=== PATIENT | female | born 1975 | race Caucasian/White ===

== ENCOUNTER 2016-12-31 12:40 | Emergency (ER) | payer MEDICAID, OTHER ==
[2016-12-31 12:45] VITALS: TEMP 98.1
[2016-12-31] MEDS ORDERED: methylPREDNISolone SOD SUCC 125 MG/2 ML VIAL IVP ONE (12:45)
[2016-12-31] MEDS ORDERED: RANITIDINE 50 MG/2 ML VIAL IVP ONE (12:45)
--- NOTE | 2016-12-31 12:53 | EDPHY ---
H & P Time Seen by Provider: 12/31/16 12:41 HPI/ROS: HPI Allergic reaction. 41-year-old female by private vehicle. This patient was diagnosed with shingles , thoracic distribution on the right side, yesterday at her primary care physician's office, [facility], she was started on naproxen which she has had in the past as well as acyclovir. About an hour and half prior to arrival she states that her fingers started feeling swollen as well as her lips and around her eyelids. She has never had a reaction to medication in the past. She tells me she thinks she is having a reaction to the acyclovir. She denies any difficulty breathing or wheezing. No sensation of swelling in her throat or difficulty swallowing. She describes having a faint flushing like red rash on her arms and legs she also describes having tingling in her hands. ROS: Constitutional: No fever, no chills. As above. Eyes: No discharge. No changes in vision. As above. ENT: No sore throat. No nasal congestion or rhinorrhea. Respiratory: No cough. No shortness of breath. Cardiac: No chest pain, no palpitations. Gastrointestinal: No abdominal pain, no vomiting, no diarrhea. Genitourinary: No hematuria. No dysuria or increased frequency with urination. Musculoskeletal: No back pain. No neck pain. No myalgias or arthralgias. Skin: As above. Neurological: No headache. No focal weakness or altered sensation. Past medical history: Shingles, tubal ligation, IUD, as above. Social history: She is here by herself. Nonsmoker. Denies alcohol. Physical Exam: General Appearance: Alert, anxious. This patient is responding to questions appropriately and in full sentences. This patient appears well-hydrated and well-nourished. No voice changes. Eyes: Pupils equal and round no pallor or injection. Mild upper and lower lid edema, erythema or injection. ENT, Mouth: Mucous membranes are moist. The pharyngeal tissues are unremarkable. No edema or swelling. No asymmetry suggestive of abscess. No erythema or exudates. No stridor on auscultation of her neck. She has mild edema of her lips. Respiratory: There are no retractions, lungs are clear to auscultation with good air movement bilaterally. Cardiovascular: Regular rate and rhythm. No murmur. Gastrointestinal: Abdomen is soft and nontender, no masses, bowel sounds normal. No focal tenderness at McBurney's point. No De La Cruz sign. Neurological: Motor sensory function is grossly intact. Cranial nerves are normal. Gait is normal. Skin: Warm and dry, diffuse erythematous flushing which is very faint and blanching on upper extremities and lower extremities. No petechiae. Zoster like rash, mid right upper abdomen. Musculoskeletal: Neck is supple and nontender. Extremities are symmetrical. All joints range without pain or impingement. Psychiatric: No agitation. No depression. Database: EKG: Imaging: Procedures: Emergency department course: Patient is likely having a reaction to acyclovir. She has had naproxen in the past and has not had any issue with it. An IV was placed. She was placed on a monitor. She was initially given 50 mg of IV Zantac, 125 mg of IV Solu-Medrol and 50 mg of IV Benadryl. 1:10 p.m., patient re-evaluated. She is doing much better. Her periorbital edema and edema involving her lips has completely disappeared. Her rash is resolved as well. She states that she feels much more relaxed and better. Lungs are clear on auscultation bilaterally. She has no difficulty swallowing or sensation of swelling in her throat. She has no complaints at this time. Plan will be to discharge her to home with prescriptions for prednisone, Benadryl and Pepcid. I discussed continuing her on an antiviral medication for her zoster. We will try valacyclovir. 1:30 p.m. patient re-evaluated. Her symptoms have resolved. She feels comfortable going home and I feel she is safe for discharge. Follow-up and return to emergency department precautions discussed. She knows how to take her medications. Her daughter is coming to pick her up now. All of her questions were answered. She was discharged in good condition. Differential Diagnosis: The differential diagnosis on this patient includes but is not limited to allergic reaction to medication, angioedema, anaphylactoid reaction. This represents a partial list of diagnoses considered. These considerations are based on history, physical exam, past history, reassessment and diagnostic testing. Smoking Status: Current every day smoker Constitutional: Initial Vital Signs Temperature (C) 36.7 C 12/31/16 12:43 Heart Rate 121 H 12/31/16 12:43 Respiratory Rate 20 12/31/16 12:43 Blood Pressure 152/87 H 12/31/16 12:43 O2 Sat (%) 95 12/31/16 12:43 O2 Delivery Mode Room Air Allergies/Adverse Reactions: No Known Allergies Allergy (Unverified 12/31/16 12:43) Home Medications: Medication Instructions Recorded Famotidine [Pepcid] 40 mg PO BID #12 tab 12/31/16 Valacyclovir HCl [Valtrex] 1,000 mg PO TID #21 tab 12/31/16 diphenhydrAMINE [Benadryl 50 MG 50 mg PO Q6-8PRN PRN #10 cap 12/31/16 (*)] predniSONE [prednisone 20mg (RX)] 60 mg PO DAILY #9 tab 12/31/16 Medical Decision Making - Data Points Medications Given: Discontinued Medications Diphenhydramine HCl (Benadryl Injection) 50 mg IVP EDNOW ONE Stop: 12/31/16 12:46 Last Admin: 12/31/16 12:53 Dose: 50 mg Methylprednisolone Sodium Succinate (Solu-Medrol) 125 mg IVP EDNOW ONE Stop: 12/31/16 12:46 Last Admin: 12/31/16 12:50 Dose: 125 mg Ranitidine HCl (Zantac) 50 mg IVP EDNOW ONE Stop: 12/31/16 12:46 Last Admin: 12/31/16 13:00 Dose: 50 mg Departure - Departure Disposition: Home, Routine, Self-Care Clinical Impression: Allergic reaction Condition: Good Instructions: General Allergic Reaction (ED) Additional Instructions: Read and follow provided instructions. Follow-up with your primary care physician tomorrow as needed for re-evaluation for re-evaluation. Take medication as prescribed only. Return to the emergency department immediately for return of facial swelling, rash, any sensation of swelling in your throat, difficulty swallowing, difficulty breathing worsening symptoms or other serious concerns. Referrals: LOLLY RIBERA,. [Primary Care Provider] - As per Instructions Prescriptions: diphenhydrAMINE [Benadryl 50 MG (*)] 50 mg PO Q6-8PRN PRN #10 cap PRN Reason: Rash Famotidine [Pepcid] 40 mg PO BID #12 tab predniSONE [prednisone 20mg (RX)] 60 mg PO DAILY #9 tab Valacyclovir HCl [Valtrex] 1,000 mg PO TID #21 tab
[2016-12-31 14:01] VITALS: BP 111/77; PULSE 76; RESP 16; O2SAT 96
== END 2016-12-31 13:40 | disposition home or self-care (01) ==
LOC: CED 12:40
DX: T78.40XA Allergy, unspecified, initial encounter (principal); F17.200 Nicotine dependence, unspecified, uncomplicated
CPT/HCPCS: 96374; J1200; J2780

== ENCOUNTER 2017-04-29 17:43 | Emergency (ER) | payer MEDICAID ==
[2017-04-29 17:53] VITALS: RESP 18; TEMP 98.1
[2017-04-29] MEDS ORDERED: methylPREDNISolone SOD SUCC 125 MG/2 ML VIAL IVP ONE (18:00)
[2017-04-29] MEDS ORDERED: FAMOTIDINE 20 MG/2 ML SDV IVP ONE (18:00)
--- NOTE | 2017-04-29 19:09 | EDPHY ---
H & P Time Seen by Provider: 04/29/17 17:51 HPI/ROS: This patient took 1 naproxen this afternoon went to a wine tasting having sips of red wine when she developed a feeling of throat swelling, a red rash to her arms and chest and intense itching to the palm of her hands. She became anxious due to the symptoms and developed some diaphoresis as well. She came here by private vehicle for further evaluation with the impression that she is having allergic reaction. Patient reports she had similar symptoms when seen here in December of this year treated for an allergic reaction that was deemed secondary to Valtrex. However, without reaction she had some angioedema as well. No angioedema of her face noted today. ROS: Constitutional: No fevers. No fatigue. No otherwise negative HEENT: No dysphonia. No facial swelling. Pulmonary: No wheeze or shortness of breath. Cardiovascular: No heart palpitations or lightheadedness GI: No nausea or vomiting Neuro: No numbness or tingling. No other complaints 10 point ROS is otherwise negative Past Medical/Surgical History: Previous allergic reaction-systemic from Valtrex. 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 Allergic beer Smoking Status: Current every day smoker Physical Exam: General Appearance: Alert, no distress. Eyes: Pupils equal and round no pallor or injection. ENT, Mouth: Mucous membranes moist. No angioedema. No drooling or stridor. No dysphonia. Respiratory: Clear to auscultation bilaterally no wheezing. There are no retractions. Cardiovascular: Regular rate and rhythm. Gastrointestinal: Abdomen is soft and nontender, no masses, bowel sounds normal. Neurological: GCS 15. Skin: Patient has a fine erythematous rash to her arms, trunk and chest. No petechia or purpura. Musculoskeletal: Neck is supple nontender. Extremities are symmetrical, full range of motion. Psychiatric: Mood and affect normal except for mild anxiety initially. DIFFERENTIAL DIAGNOSIS: After history and physical exam differential diagnosis was considered for allergic reaction, disulfiram reaction or tyramine flushing response Constitutional: Initial Vital Signs Temperature (C) 36.7 C 04/29/17 17:50 Heart Rate 86 04/29/17 17:50 Respiratory Rate 18 04/29/17 17:50 Blood Pressure 132/84 H 04/29/17 17:50 O2 Sat (%) 95 04/29/17 17:50 O2 Delivery Mode Room Air Allergies/Adverse Reactions: alcohol [beer] Allergy (Verified 04/29/17 17:53) bee venom protein (honey bee) Allergy (Verified 04/29/17 17:53) valacyclovir [From Valtrex] Allergy (Verified 04/29/17 17:54) Home Medications: Medication Instructions Recorded Famotidine [Pepcid] 40 mg PO DAILY #5 tablet 04/29/17 predniSONE 40 mg PO DAILY #8 tab 04/29/17 MDM/Departure - MDM Medications Given: Discontinued Medications Diphenhydramine HCl (Benadryl Injection) 25 mg IVP EDNOW ONE Stop: 04/29/17 18:01 Last Admin: 04/29/17 18: Dose: 25 mg Famotidine (Pepcid) 40 mg IVP EDNOW ONE Stop: 04/29/17 18:01 Last Admin: 04/29/17 18: Dose: 40 mg Methylprednisolone Sodium Succinate (Solu-Medrol) 125 mg IVP EDNOW ONE Stop: 04/29/17 18:01 Last Admin: 04/29/17 18:18 Dose: 125 mg ED Course/Re-evaluation: IV, monitor, patient remained stable without pulmonary symptoms Given rash, intense itching and feeling of swelling and throat with prior history of allergic reactions, proceeded with IV Solu-Medrol 125 mg, Benadryl IV and Pepcid IV. Patient had steady improvement in her symptoms and at 1900 when I checked on her again she had resolution of the feeling of tightness and swelling in her throat. Also, her rash is resolved and the feeling of pruritus has resolved. She feels well. On repeat examination she maintains clear lungs with no wheezing. Discussion: Concerning the patient's past history, current presentation and physical exam findings along with improvement, findings are most consistent with allergic reaction. I counseled regarding this. I advised avoiding red wine following up with an orthopaedic physician assistant for some testing. She will go home on prednisone, Pepcid and Benadryl. She understands need to return to the emergency department should she have any significant recurrence or worsening of her symptoms despite the treatment plan. - Depart Disposition: Home, Routine, Self-Care Clinical Impression: Allergic reaction Qualifiers: Encounter type: initial encounter Qualified Code(s): T78.40XA - Allergy, unspecified, initial encounter Condition: Good Instructions: Food Allergy (ED) Additional Instructions: Diagnosis: Allergic reaction Plan: [id number] mg per 6 hours as needed for itching or redness If you have ongoing symptoms tomorrow then take prednisone after breakfast and Pepcid daily until symptoms resolve. Consider follow-up with Dr. Davison-orthopaedic physician assistant for further evaluation. Return to the emergency department if you develop any significant recurrence of allergic symptoms despite the treatment plan Prescriptions: Famotidine [Pepcid] 40 mg PO DAILY #5 tablet predniSONE 40 mg PO DAILY #8 tab Referrals: Benji ELLER [Primary Care Provider] - As per Instructions Ania DAVISON [Medical Doctor] - As per Instructions
[2017-04-29 19:36] VITALS: BP 135/82; PULSE 91; O2SAT 94
== END 2017-04-29 19:30 | disposition home or self-care (01) ==
LOC: CED 17:43
DX: T78.40XA Allergy, unspecified, initial encounter (principal); F17.200 Nicotine dependence, unspecified, uncomplicated
CPT/HCPCS: 96374; J1200

== ENCOUNTER 2018-08-25 01:37 | Inpatient (IN) | payer MEDICAID ==
[2018-08-25] MEDS ORDERED: HYDROmorphONE/DILAUDID 2 MG/ML INJ IVP ONE (02:03)
[2018-08-25] MEDS ORDERED: fentaNYL 100 MCG/2 ML INJ IVP ONE (02:03)
[2018-08-25] MEDS ORDERED: NS 1,000 ML IV ONE ×3 (02:03→07:03)
[2018-08-25] MEDS ORDERED: DIAZEPAM 10 MG/2 ML SYR IVP ONE (02:05)
--- NOTE | 2018-08-25 02:12 | EDPHY ---
H & P Stated Complaint: c/o severe back pain,suprapubic pain tonight, n/v, dysuria 2 days ago Time Seen by Provider: 08/25/18 01:41 HPI/ROS: CHIEF COMPLAINT: Vomiting followed by bilateral lower quadrant pain HISTORY OF PRESENT ILLNESS: Previously healthy though known alcoholism in a 43-year-old female who has had problematic nausea for the last 6 months. She has yet to make an appointment with Gastroenterology but states that in fact her plan. She is worried that her chronic alcohol consumption has been causing her gastric damage. That said , however she has been unable to stop. 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 However, beginning approximately 36 hr ago she noted onset of dysuric symptoms with frequency. But she did feel somewhat warm at times there were no no fevers or chills. Beginning yesterday morning on August 24 at approximately a.m. She started vomiting. Essentially she has not had adequate p.o. Oral intake since the night of the , and reports a severe dry mouth. She did state that through the course of the day on the she tried to sit on a martini as in the past she has had such profound difficulty when going cold turkey with respect alcohol withdrawal. Then, at approximately 1:00 p.m. Yesterday afternoon some 12 hr ago she started having bilateral lower quadrant discomfort and suprapubic discomfort. Over the course of time this discomfort became worse and worse and started including bilateral back pain. There is no radiation to the upper abdomen. She has not tried any ibuprofen or Tylenol for this pain. [place]. She tried to take it over to get here but was having trouble with the MELISSA, thus simply walked over. She does not feel faint or particularly weak when she stands up. P: The discomfort in her lower abdomen is not worse with standing or walking Q: Ache R: No radiation, though progressive over time to include the lower back bilaterally S: Moderate to severe T: Progressive over last 12 hr REVIEW OF SYSTEMS: Constitutional: No fever, no chills. Eyes: No discharge ENT: No sore throat. Cardiovascular: No chest pain, no palpitations. Respiratory: No cough, shortness of breath, or wheezing. Gastrointestinal: See above Genitourinary: No hematuria or frequency. Musculoskeletal: No back pain. Skin: No rashes. Neurological: No headache. A 10 system review of systems was performed and is negative except for the noted findings in the HPI. Source: Patient Exam Limitations: No limitations - Personal History LMP (Females 10-55): IUD In Place Current Tetanus Diphtheria and Acellular Pertussis (TDAP): Yes - Medical/Surgical History Hx Asthma: No Hx Chronic Respiratory Disease: No Hx Diabetes: No Hx Cardiac Disease: No Hx Renal Disease: No Hx Cirrhosis: No Hx Alcoholism: Yes Hx HIV/AIDS: No Hx Splenectomy or Spleen Trauma: No Other PMH: TUBAL LIGATION - Social History Smoking Status: Light smoker Alcohol Use: Heavy Drug Use: None - Physical Exam Exam: General Appearance: Awake, coherenet though moderate distress. T = 37.3, PO, on my reading. Normal phonation. No respiratory distress. Eyes: Pupils equal and round no pallor or injection. No icterus ENT, Mouth: Mucous membranes [moderately dry] Pharynx without erythema or exudate. TM Clear. Neck: No adenopathy. Supple. No JVD. Trachea in midline. Respiratory: There are no retractions, lungs are clear to auscultation. Cardiovascular: Regular rate and rhythm, tachycardic, no murmur. Abdomen: Bilateral lower quadrant tenderness without rebound or guarding, no masses, bowel sounds normal. [Femoral pulses equal]. Neurological: Ox3. No motor weakness. Sensation intact. Gait nl. No tongue tremor Skin: Somewhat pale though no diaphoresis Musculoskeletal: No joint swelling. Extremities: No edema. Homans sign negative. No cords. Psychiatric: Normal affect. Honest about her drinking Constitutional: Initial Vital Signs Temperature (C) 36.9 C 08/25/18 01:51 Heart Rate 135 H 08/25/18 01:51 Respiratory Rate 24 H 08/25/18 01:51 Blood Pressure 133/87 H 08/25/18 01:51 O2 Sat (%) 96 08/25/18 01:51 O2 Delivery Mode Room Air Allergies/Adverse Reactions: alcohol [beer] Allergy (Verified 04/29/17 17:53) bee venom protein (honey bee) Allergy (Verified 04/29/17 17:53) valacyclovir [From Valtrex] Allergy (Verified 04/29/17 17:54) Home Medications: Medication Instructions Recorded Ranitidine HCl 08/25/18 Medical Decision Making - Diagnostics Imaging Results: Chest x-ray: Two view chest. Interpreted by [me, contemporaneously]. Films [viewed] by me on the PACS system. Normal mediastinum. Normal lung briscoe. No effusions. Normal chest. ED Course/Re-evaluation: Initial management included: Aggressive IV hydration in the setting of volume depletion Ativan IV titration for alcohol withdrawal-no Valium in stock Fentanyl and Dilaudid treatment for her pain Laboratory studies: Preserved renal function with a creatinine of 0.9 Mild LFT elevation in AST and ALT compatible with alcoholic hepatitis Severely elevated lactic acid of 10.4 Serum potassium of 5.6 - thus initiated Proventil treatment, as well as ongoing aggressive IV fluid therapy Hypoglycemia with glucose of 28, verified with a Chem BG fingerstick of 20 thus given an amp of D50 Re-evaluation patient had 3:00 a.m.: Septic shock declared due to lactic acid of 10.4 Aggressive hydration already in process in the 1st placed Add order for Levaquin 7.5 mg IV Blood cultures ordered Patient is better, less pain. Minimally affected by the Ativan though seems more relaxed, remains awake alert Creatinine as noted above is stable at 0.[address] scan initiated to include IV contrast Unable to perform verification of the potassium in glucose on the i-STAT machine thus a order placed for a Basic profile at [facility] We have verification of bed status at [facility], no restrictions noted. Pending labs at [facility] include: Urinalysis, urine culture, blood culture, lipase, magnesium 04:27: CT findings, as per Radiologist: Left hydronephrosis without stone Hepatic steatosis Stranding of fat adjacent to the uterus Small hiatal hernia Lipase was normal at 27 Magnesium normal at 2.2 Laboratory was able to confirm that indeed she had hypoglycemia as well as mild hyperkalemia, this was performed on the original specimen as well as that done here at of point of care. Case discussed with Dr. Garcia, [facility]. Arranged made for transfer to ICU at [facility] Differential Diagnosis: Diagnostic considerations include, but are not limited to, the following, 5this represents a partial list of diagnoses considered These considerations are based on history, physical exam, past history, reassessment and diagnostic testing: Sepsis, septic shock, pyelonephritis, pancreatitis, alcohol withdrawal, severe dehydration, appendicitis, diverticulitis. Critical Care Time: I spent a total of [75] minutes of critical care time in obtaining history, performing a physical exam, bedside monitoring of interventions, collecting and interpreting tests and discussion with consultants but not including time spent performing procedures. - Data Points Laboratory Results: Laboratory Results 08/25/18 02:20 08/25/18 08/25/18 08/25/18 03:50 03:09 02:54 POC Sodium Sodium POC Potassium Potassium POC Chloride Chloride Carbon Dioxide POC Total CO2 Anion Gap POC BUN BUN Creatinine POC Creatinine Estimated GFR Glucose POC Glucose 181 mg/dL H mg/dL < 20 mg/dL L* mg/dL (70-100) (70-100) POC Lactic Acid [place] POC Calcium Calcium Magnesium POC Total Bilirubin POC AST POC ALT POC Alk Phosphatase POC Total Protein POC Albumin Lipase Urine Color ANDRES Urine Appearance CLEAR Urine pH 5.0 (5.0-7.5) Ur Specific [place] 1.013 (1.002-1.030) Urine Protein 2+ H (NEGATIVE) Urine Ketones 2+ H (NEGATIVE) Urine Blood 2+ H (NEGATIVE) Urine Nitrate NEGATIVE (NEGATIVE) Urine Bilirubin NEGATIVE (NEGATIVE) Urine Urobilinogen NEGATIVE EU EU (0.2-1.0) Ur Leukocyte Esterase NEGATIVE (NEGATIVE) Urine RBC 1-3 /hpf /hpf (0-3) Urine WBC 3-5 /hpf H /hpf (0-3) Ur Epithelial Cells TRACE /lpf /lpf (NONE-1+) Amorphous Sediment PRESENT /hpf /hpf (NONE-1+) Urine Bacteria 1+ /hpf H /hpf (NONE SEEN) Hyaline Casts 25-50 /lpf H /lpf (0-1) Urine Mucus TRACE /lpf /lpf (NONE-1+) Urine Glucose NEGATIVE (NEGATIVE) 08/25/18 08/25/18 08/25/18 02:30 02:29 02:20 POC Sodium 146 mEq/L H mEq/L (135-145) Sodium 142 mEq/L mEq/L (135-145) POC Potassium 5.6 mEq/L H mEq/L (3.3-5.0) Potassium 5.7 mEq/L H mEq/L (3.5-5.2) POC Chloride 101.0 mEq/L mEq/L (97-110) Chloride 106 mEq/L mEq/L (97-110) Carbon Dioxide 7 mEq/l L* mEq/l (22-31) POC Total CO2 8 mEq/L L* mEq/L (22-31) Anion Gap 29 mEq/L H mEq/L (6-14) POC BUN 12 mg/dL mg/dL (7-23) BUN 13 mg/dL mg/dL (7-23) Creatinine 1.0 mg/dL mg/dL (0.6-1.0) POC Creatinine 0.9 mg/dL mg/dL (0.6-1.0) Estimated GFR 60 Glucose < 20 mg/dL L* mg/dL (70-100) POC Glucose 28 mg/dL L* mg/dL (70-100) POC Lactic Acid [place] 10.4 mmol/L H mmol/L (0.7-2.1) POC Calcium 9.3 mg/dL mg/dL (8.5-10.4) Calcium 9.8 mg/dL mg/dL (8.5-10.4) Magnesium POC Total Bilirubin 0.9 mg/dL mg/dL (0.1-1.4) POC AST 100 IU/L H IU/L (14-46) POC ALT 74 IU/L H IU/L (9-52) POC Alk Phosphatase 68 IU/L IU/L (38-126) POC Total Protein 8.4 g/dL H g/dL (6.3-8.2) POC Albumin 4.8 g/dL g/dL (3.5-5.0) Lipase Urine Color Urine Appearance Urine pH Ur Specific [place] Urine Protein Urine Ketones Urine Blood Urine Nitrate Urine Bilirubin Urine Urobilinogen Ur Leukocyte Esterase Urine RBC Urine WBC Ur Epithelial Cells Amorphous Sediment Urine Bacteria Hyaline Casts Urine Mucus Urine Glucose 08/25/18 02:20 POC Sodium Sodium POC Potassium Potassium POC Chloride Chloride Carbon Dioxide POC Total CO2 Anion Gap POC BUN BUN Creatinine POC Creatinine Estimated GFR Glucose POC Glucose POC Lactic Acid [place] POC Calcium Calcium Magnesium 2.2 mg/dL mg/dL (1.6-2.3) POC Total Bilirubin POC AST POC ALT POC Alk Phosphatase POC Total Protein POC Albumin Lipase 23 IU/L IU/L (23-300) Urine Color Urine Appearance Urine pH Ur Specific [place] Urine Protein Urine Ketones Urine Blood Urine Nitrate Urine Bilirubin Urine Urobilinogen Ur Leukocyte Esterase Urine RBC Urine WBC Ur Epithelial Cells Amorphous Sediment Urine Bacteria Hyaline Casts Urine Mucus Urine Glucose Medications Given: Discontinued Medications Albuterol (Proventil Neb) 9 ml IH EDNOW ONE Stop: 08/25/18 02:50 Last Admin: 08/25/18 03:00 Dose: 9 ml Dextrose (Dextrose 50% Syringe) 25 gm IVP EDNOW ONE Stop: 08/25/18 03:11 Last Admin: 08/25/18 03:25 Dose: 25 gm Diazepam (Valium) 5 mg IVP EDNOW ONE Stop: 08/25/18 02:06 Last Admin: 08/25/18 02:54 Dose: Not Given Fentanyl (Sublimaze) 50 mcg IVP EDNOW ONE Stop: 08/25/18 02:04 Last Admin: 08/25/18 02:38 Dose: 50 mcg Hydromorphone HCl (Dilaudid) 0.5 mg IVP EDNOW ONE Stop: 08/25/18 02:04 Last Admin: 08/25/18 02:37 Dose: 0.5 mg Sodium Chloride (Ns) 1,000 mls @ 0 mls/hr IV ONCE ONE; As Directed PRN Reason: Protocol Stop: 08/25/18 02:04 Last Admin: 08/25/18 02:36 Dose: 1,000 mls Sodium Chloride (Ns) 1,000 mls @ 0 mls/hr IV ONCE ONE; Wide Open PRN Reason: Protocol Stop: 08/25/18 02:36 Last Admin: 08/25/18 02:36 Dose: 1,000 mls Levofloxacin/Dextrose (Levaquin 750 Mg (Premix)) 150 mls @ 100 mls/hr IV EDNOW ONE PRN Reason: Protocol Stop: 08/25/18 04:37 Last Admin: 08/25/18 03:23 Dose: 150 mls Lorazepam (Ativan Injection) 1 mg IVP EDNOW ONE Stop: 08/25/18 02:36 Last Admin: 08/25/18 02:37 Dose: 1 mg Lorazepam (Ativan Injection) 1 mg IVP ONCE ONE Stop: 08/25/18 03:48 Last Admin: 08/25/18 03:52 Dose: 1 mg Lorazepam (Ativan Injection) 1 mg IVP EDNOW ONE Stop: 08/25/18 04:46 Last Admin: 08/25/18 04:48 Dose: 1 mg Ondansetron HCl (Zofran) 4 mg IVP EDNOW ONE Stop: 08/25/18 02:36 Last Admin: 08/25/18 02:38 Dose: 4 mg Point of Care Test Results: CBC CBC Collection Date 08/25/18 CBC Collection Time 02:20 WBC 16.6 RBC 4.14 HGB 15.7 HCT 46.3 PLT 233 Neut # 16.3 Neut 97.9 LYMPH # 0.2 LYMPH 1.5 Other WBC # 0.1 Other WBC 0.6 MCV 111.8 Chemistry 08/25/18 08/25/18 08/25/18 03:50 03:09 02:29 POC Sodium 146 mEq/L H mEq/L (135-145) POC Potassium 5.6 mEq/L H mEq/L (3.3-5.0) POC Chloride 101.0 mEq/L mEq/L (97-110) POC Total CO2 8 mEq/L L* mEq/L (22-31) POC BUN 12 mg/dL mg/dL (7-23) POC Creatinine 0.9 mg/dL mg/dL (0.6-1.0) POC Glucose 181 mg/dL H mg/dL < 20 mg/dL L* mg/dL 28 mg/dL L* mg/dL (70-100) (70-100) (70-100) POC Calcium 9.3 mg/dL mg/dL (8.5-10.4) POC Total Bilirubin 0.9 mg/dL mg/dL (0.1-1.4) POC AST 100 IU/L H IU/L (14-46) POC ALT 74 IU/L H IU/L (9-52) POC Alk Phosphatase 68 IU/L IU/L (38-126) POC Total Protein 8.4 g/dL H g/dL (6.3-8.2) POC Albumin 4.8 g/dL g/dL (3.5-5.0) Blood Gas/Lactic Acid-Venous 08/25/18 02:30 POC Lactic Acid Santo 10.4 mmol/L H mmol/L (0.7-2.1) Urine Collection Date 08/25/18 Collection Time 03:00 HCG Results Negative Departure - Departure Disposition: [facility] Acute Clinical Impression: SIRS (systemic inflammatory response syndrome), Hypoglycemia, Hyperkalemia, Dehydration Alcohol withdrawal Qualifiers: Complication of substance-induced condition: uncomplicated Qualified Code(s): F10.230 - Alcohol dependence with withdrawal, uncomplicated Condition: Critical Referrals: Patient,NotPresent [Primary Care Provider] - As per Instructions
[2018-08-25] MEDS ORDERED: ONDANSETRON 4 MG/2 ML VIAL ONE (02:29)
[2018-08-25] MEDS ORDERED: LORazepam 2 MG/ML INJ ONE ×2 (02:32→05:18)
[2018-08-25] MEDS ORDERED: ONDANSETRON 4 MG/2 ML VIAL IVP ONE (02:35)
[2018-08-25] MEDS ORDERED: LORazepam 2 MG/ML INJ IVP ONE ×4 (02:35→05:01)
[2018-08-25] MEDS ORDERED: ALBUTEROL 3 ML DEYVIAL IH ONE (02:49)
[2018-08-25] MEDS ORDERED: IOPAMIDOL (ISOVUE 370) 100 ML BTL IV ONE (03:02)
[2018-08-25] MEDS ORDERED: D50W 25 GM/50 ML SYR IVP ONE ×2 (03:10→03:11)
--- NOTE | 2018-08-25 04:54 | CPEKG ---
Test Reason : OPEN Blood Pressure : / mmHG Vent. Rate : 126 BPM Atrial Rate : 127 BPM P-R Int : 112 ms QRS Dur : 083 ms QT Int : 316 ms P-R-T Axes : 035 053 027 degrees QTc Int : 458 ms Sinus tachycardia Confirmed by Kenny Clinton ([id number]) on 08/25/2018 4:53:52 AM Referred By: Kenny Clinton Confirmed By:Kenny Clinton
[2018-08-25] MEDS ORDERED: ONDANSETRON 4 MG/2 ML VIAL IVP PRN (06:46)
[2018-08-25] MEDS ORDERED: ONDANSETRON DISINTEGRATING 4 MG TAB PO PRN (06:46)
[2018-08-25] MEDS ORDERED: PROMETHAZINE HCL 25 MG/ML INJ IVP PRN (06:46)
[2018-08-25] MEDS ORDERED: ACETAMINOPHEN 325 MG TAB PO PRN (06:46)
[2018-08-25] MEDS ORDERED: FLUMAZENIL 0.5 MG/5 ML MDV IVP PRN (06:48)
[2018-08-25] MEDS ORDERED: D50W 25 GM/50 ML SYR IVP PRN (06:49)
[2018-08-25] MEDS ORDERED: ALTEPLASE 2 MG VIAL IVP PRN (07:03)
--- NOTE | 2018-08-25 07:18 | PDGENHP ---
History and Physical - Chief Complaint Abdominal pain - History of Present Illness 43 yo F w/ hx of ETOH use disorder presented to [facility] with complaints of abdominal pain. The patient tells me she has been able to tolerate minimal PO intake for several weeks. She continues to drink a few martinis per day, however. Then, 2 days ago, she developed dysuria. Yesterday she developed severe fever, chills, lower abdominal pain, and back pain so she presented to the [facility]. In the [facility] she was found to be tachycardic and have numerous laboratory abnormalities including leukocytosis, lactic acidosis, hypoglycemia, and hyperkalemia. Despite this she appears fairly non-toxic aside from complaints of lower abdominal pain. She remains tachycardic and is likely starting to withdraw from alcohol. Interestingly, her UA does not appear overtly infectious. A CT of her abdomen demonstrates findings possibly consistent with PID but no complicating abscess. Case discussed with ED physician Dr. Clinton; records reviewed and summarized above. History Information - Allergies/Home Medication List Allergies/Adverse Reactions: alcohol [beer] Allergy (Verified 04/29/17 17:53) bee venom protein (honey bee) Allergy (Verified 04/29/17 17:53) valacyclovir [From Valtrex] Allergy (Verified 04/29/17 17:54) Home Medications: Ranitidine HCl 08/25/18 [Last Taken Unknown] I have personally reviewed and updated: family history, medical history - Past Medical History Additional medical history: Anorexia - Surgical History Additional surgical history: Tubal ligation - Family History Positive for: diabetes type II, hypertension Additional family history: Brother had kidney disease - Social History Smoking Status: Light smoker Alcohol Use: Heavy Drug Use: None Review of Systems Review of Systems: ROS: 10pt was reviewed & negative except for what was stated in HPI & below Physical Exam Physical Exam: Temp Pulse Resp BP Pulse Ox 36.8 C 131 H 22 H 113/91 H 96 08/25/18 06:28 08/25/18 06:28 08/25/18 06:28 08/25/18 06:28 08/25/18 06:28 Constitutional: appears nourished, uncomfortable Eyes: PERRL, EOMI Ears, Nose, Mouth, Throat: no oral mucosal ulcers, dry mucous membranes Cardiovascular: no murmur, rub, or gallop, tachycardia Respiratory: no respiratory distress, clear to auscultation Gastrointestinal: tenderness (Suprapubic), No guarding, No rebound Skin: warm, normal color Neurologic: AAOx3, CN II-XII Intact Psychiatric: interacting appropriately, not anxious Lab Data & Imaging Review 08/25/18 02:20 POC Sodium 146 mEq/L (135-145) H 08/25/18 02:29 Sodium 142 mEq/L (135-145) 08/25/18 02:20 POC Potassium 5.6 mEq/L (3.3-5.0) H 08/25/18 02:29 Potassium 5.7 mEq/L (3.5-5.2) H 08/25/18 02:20 POC Chloride 101.0 mEq/L (97-110) 08/25/18 02:29 Chloride 106 mEq/L (97-110) 08/25/18 02:20 Carbon Dioxide 7 mEq/l (22-31) L* 08/25/18 02:20 POC Total CO2 8 mEq/L (22-31) L* 08/25/18 02:29 Anion Gap 29 mEq/L (6-14) H 08/25/18 02:20 POC BUN 12 mg/dL (7-23) 08/25/18 02:29 BUN 13 mg/dL (7-23) 08/25/18 02:20 Creatinine 1.0 mg/dL (0.6-1.0) 08/25/18 02:20 POC Creatinine 0.9 mg/dL (0.6-1.0) 08/25/18 02:29 Estimated GFR 60 08/25/18 02:20 Glucose < 20 mg/dL (70-100) L* 08/25/18 02:20 POC Glucose 181 mg/dL (70-100) H 08/25/18 03:50 POC Lactic Acid [place] 10.4 mmol/L (0.7-2.1) H 08/25/18 02:30 POC Calcium 9.3 mg/dL (8.5-10.4) 08/25/18 02:29 Calcium 9.8 mg/dL (8.5-10.4) 08/25/18 02:20 Magnesium 2.2 mg/dL (1.6-2.3) 08/25/18 02:20 POC Total Bilirubin 0.9 mg/dL (0.1-1.4) 08/25/18 02:29 POC AST 100 IU/L (14-46) H 08/25/18 02:29 POC ALT 74 IU/L (9-52) H 08/25/18 02:29 POC Alk Phosphatase 68 IU/L (38-126) 08/25/18 02:29 POC Total Protein 8.4 g/dL (6.3-8.2) H 08/25/18 02:29 POC Albumin 4.8 g/dL (3.5-5.0) 08/25/18 02:29 Lipase 23 IU/L (23-300) 08/25/18 02:20 Urine Color ANDRES 08/25/18 02:54 Urine Appearance CLEAR 08/25/18 02:54 Urine pH 5.0 (5.0-7.5) 08/25/18 02:54 Ur Specific [place] 1.013 (1.002-1.030) 08/25/18 02:54 Urine Protein 2+ (NEGATIVE) H 08/25/18 02:54 Urine Ketones 2+ (NEGATIVE) H 08/25/18 02:54 Urine Blood 2+ (NEGATIVE) H 08/25/18 02:54 Urine Nitrate NEGATIVE (NEGATIVE) 08/25/18 02:54 Urine Bilirubin NEGATIVE (NEGATIVE) 08/25/18 02:54 Urine Urobilinogen NEGATIVE EU (0.2-1.0) 08/25/18 02:54 Ur Leukocyte Esterase NEGATIVE (NEGATIVE) 08/25/18 02:54 Urine RBC 1-3 /hpf (0-3) 08/25/18 02:54 Urine WBC 3-5 /hpf (0-3) H 08/25/18 02:54 Ur Epithelial Cells TRACE /lpf (NONE-1+) 08/25/18 02:54 Amorphous Sediment PRESENT /hpf (NONE-1+) 08/25/18 02:54 Urine Bacteria 1+ /hpf (NONE SEEN) H 08/25/18 02:54 Hyaline Casts 25-50 /lpf (0-1) H 08/25/18 02:54 Urine Mucus TRACE /lpf (NONE-1+) 08/25/18 02:54 Urine Glucose NEGATIVE (NEGATIVE) 08/25/18 02:54 Ethyl Alcohol 56 mg/dL (0-10) H 08/25/18 04:42 Imaging Review: CT A/P Prelim: 1. L sided hydronephrosis 2. Stranding of fat adjacent to uterus and adnexa; PID? Visualized and Interpreted EKG results: Yes EKG Interpretation: Positive for: other (Sinus tach) Assessment & Plan Assessment: 43 yo F w/ ETOH use disorder presents with sepsis from suspected PID. Plan: 1. Sepsis - 3/4 SIRS criteria present on admission (WBC, HR, RR); source most likely PID noting results of CT scan. Urinary source is also possible but less likely noting fairly benign appearance of urinalysis. Lactate >10 on initial presentation. - S/p levofloxacin at [facility] - Will proceed with CTX and Doxycycline IV to cover both PID and UTI for now - Blood and urine cultures pending - Continue aggressive fluid resuscitation - Will request PICC placement due to poor IV access 2. Lactic acidosis - Lactate >10 on initial presentation. This is likely multifactorial from infection, profound dehydration, and liver dysfunction. - Infectious management as above - Continue aggressive hydration - Recheck lactate now 3. Hypoglycemia - Blood glucose <20 on arrival at [facility] although patient was asymptomatic. I wonder if this was artifactual. She has no history of diabetes and takes no DM medications. If true, hypoglycemia likely due to alcohol and malnutrition. - Monitor BG q6h - Will check A1c - D50 IV PRN for hypoglycemia 4. L hydronephrosis - Unclear etiology; it is possible she recently passed a stone or that this is related to possible PID noted above. - Monitor renal function 5. ETOH use disorder - She appears to be displaying signs of early withdrawal. She has drank daily for about a year. - [facility] protocol ordered - Daily MVI, folate, thiamine 6. Hyperkalemia - This is likely a reflection of profound acidosis; no concerning ECG changes noted. She is likely total body K depleted. - Monitor BMP 7. Transaminitis - Suspect related to ETOH. Diet - Clears, ADAT Code - Full Ppx - SCDs pending diagnostic clarity Dispo - Admit under inpatient status I personally spent 60 minutes of critical care time evaluating patient, interpreting data, and coordinating care.
[2018-08-25] MEDS: DOXYCYCLINE INJ 100 MG in NS 250 ML IV SCH ×3 (07:49→21:13)
[2018-08-25] MEDS: MULTIVITAMINS 1 EACH TAB PO SCH (08:28)
[2018-08-25] MEDS: FOLIC ACID 1 MG TAB PO SCH (08:28)
[2018-08-25] MEDS: LORazepam 2 MG/ML INJ IVP PRN ×2 (08:28→22:46)
[2018-08-25] MEDS ORDERED: DOXYCYCLINE INJ 100 MG in NS 250 ML IV SCH (09:00)
--- NOTE | 2018-08-25 11:59 | HOSPPROG ---
Hospitalist Progress Note Assessment/Plan: 43 yo F w/ ETOH use disorder presents with pelvic pain, sepsis from suspected PID. Plan: Septic shock - (WBC, HR, RR, lactate 10 on admission, f/u lactate 4), 2/[address] findings (pers reviewed/interp) and symptoms. Note presence of IUD, she states it was placed 2 yrs ago. I discussed the case with Dr. Pink, ELECT[employer], as IUD likely needs to be removed and she needs a complete pelvic exam. - Blood and urine cultures pending - Continue IVF's - trend lactate - PICC placement this am (BP's soft, but no indication for pressors at this time ) - cont Ceftriaxone plus Doxy - send urine GC / chlamydia gen probe - ob gyn to consult and recommends removal of IUD Hypoglycemia - Blood glucose <20 on arrival at [facility]. No history of diabetes and takes no DM medications. If true, hypoglycemia likely due to alcohol and malnutrition. - Monitor BG q6h - A1c pending - D50 IV PRN for hypoglycemia L hydronephrosis - Unclear etiology; it is possible she recently passed a stone or that this is related to possible PID noted above. - Monitor renal function ETOH use disorder in acute withdrawal - She appears to be displaying signs of early withdrawal. She has drank daily for about a year, 12 shots of vodka a day. Doesn't plan to quit drinking, but request we proceed with w/d management - CIWA protocol ordered - Daily MVI, folate, thiamine Hyperkalemia - This is likely a reflection of profound acidosis; no concerning ECG changes noted. She is likely total body K depleted. - Monitor BMP Transaminitis - Suspect related to ETOH. Diet - Clears, ADAT Code - Full Ppx - Lovenox Dispo - Cont inpt Subjective: Pt is sleepy, just had IV ativan for elevated CIWA and tremor. She says her pelvic pain is improved. No dysuria, frequency or urgency. No flank pain. No fevers. Objective: Vital Signs Temp Pulse Resp BP Pulse Ox 37.3 C 112 H 16 98/57 L 95 08/25/18 08:00 08/25/18 10:00 08/25/18 10:00 08/25/18 10:00 08/25/18 10:00 Laboratory Results 08/25/18 07:25 08/25/18 07:25 08/24/18 08/25/18 08/26/18 05:59 05:59 05:59 Intake Total 2049 Output Total 400 700 Balance 1650 -700 - Physical Exam Constitutional: no apparent distress Eyes: PERRL Ears, Nose, Mouth, Throat: moist mucous membranes Cardiovascular: regular rate and rhythym Respiratory: no respiratory distress Gastrointestinal: normoactive bowel sounds, soft, non-tender abdomen Skin: warm Musculoskeletal: full muscle strength Neurologic: AAOx3 Psychiatric: interacting appropriately ICD10 Worksheet Patient Problems: Problems Problem Status Onset Alcohol withdrawal Acute Dehydration Acute Hyperkalemia Acute Hypoglycemia Acute SIRS (systemic inflammatory response syndrome) Acute
[2018-08-25] MEDS: NS 1,000 ML IV SCH ×2 (12:40→19:07)
--- NOTE | 2018-08-25 15:06 | PDMN ---
Medical Necessity Medical necessity: Pt meets IP criteria as of 08/25/2018 per and MCG M-160 ( Sepsis); est los > 2 mn for ongoing tx and evaluation of sepsis with lactate elevation at 4, tachycardia, tachypnea and elevated WBC; as well as hypoglycemia , hydronephrosis, ETOH use disorder in acute withdrawal, hyperkalemia, and transaminitis.
--- NOTE | 2018-08-25 15:37 | ASMTCASEMG ---
Living Arrangements What is your living Answers: With Child(parker) arrangement? Who do you live with? Type Of Residence What kind of residence do Answers: House you live in? Discharge Plan Comments Coordination Status Comments Notes: Patient is a 43yo single female with ETOH use disorder presenting with sepsis from suspected PID. Patient is being admitted for sepsis, lactic acidosis, hypoglycemia, L hydronephrosis, ETOH use disorder, hyperkalemia, and transaminitis. Patient has a daughter who lives with her. No therapies ordered at this time. CM to check with patient regarding social support. Cage and ETOH resources as soon as the patient is more able to participate. CM will follow. Date Signed: 08/25/2018 03:36 PM Electronically Signed By:Chloe Mayorga LCSW
[2018-08-26] MEDS: NS 1,000 ML IV SCH (04:13)
[2018-08-26 04:25] LABS: PLATELET COUNT 145 10^3/uL (150-400)
[2018-08-26] MEDS: LORazepam 2 MG/ML INJ IVP PRN ×5 (06:33→23:55)
[2018-08-26] MEDS: HYDROmorphONE/DILAUDID 1 MG/ML INJ IVP PRN ×2 (06:34→20:12)
--- NOTE | 2018-08-26 07:54 | GCON ---
[f rep st] CONSULTATION GYNECOLOGY CONSULT DATE OF CONSULTATION: 08/25/2018 SERVICE: Gynecology. HISTORY UPON CONSULTATION: The patient is a 43-year-old white female who was admitted in the early h ours of 08/25 due to acute onset of pain in the mid pelvis. Patient reported diffuse lower tendernes s and also with recent dysuria and urgency. Patient denied any vaginal bleeding or vaginal discharge or odor. Patient was afebrile. Patient was seen in the emergency room and had signs of early sepsi s with tachycardia and tachypnea and also compounding symptoms with likely alcohol withdrawal. Jackie nt had a CAT scan performed that showed [id number] left hydronephrosis with mild stranding in t he pelvis consistent with possible PID with no signs of abscess. An IUD was seen and in good positio n. The patient was admitted to the ICU and has had treatment for alcohol withdrawal and also was beg un on antibiotics for coverage of possible PID and UTI. Consultation was placed with questions regar ding IUD management and to evaluate concerns for PID. Upon my consultation, the patient reports that her lower abdominal discomfort had significantly lesse elissa from admission. The patient now reporting 1/10 discomfort. We discussed the current recommendat ion that if treatment for PID improves within 48-72 hours, then there is not a reason to have to ashanti ve an IUD. If no clinical improvement, and no other sources for infection, then it is felt that it i s prudent to remove the IUD and culture to improve response to treatment. The patient would like to not have her IUD removed unless necessary. I reviewed with the patient the CAT scan findings with mi ld suspicion for PID; however, no obvious signs of abscess. PAST MEDICAL HISTORY: Alcohol abuse, dysmenorrhea, gastritis. PAST SURGICAL HISTORY: D and C, BTL. PAST OBSTETRIC HISTORY: G2, A2 with a TAB x1 and an SAB x1. PAST GYNECOLOGIC HISTORY: A distant history of chlamydia. Denies ever having gonorrhea. Reports IU D was replaced approximately 2 years ago. Reports a Mirena IUD and has not had menstrual cycles in y ears. This was placed for the dysmenorrhea as the patient has already had a BTL. SOCIAL HISTORY: The patient has been monogamous with her boyfriend off and on for 15-20 years. The patient reports the partner has had other partners. History of alcohol abuse, and no desire to stop. CURRENT MEDICATION: Only ranitidine for gastritis. PHYSICAL EXAM: VITAL SIGNS: At time of consultation, the patient's heart rate has come down into th e 110s, and the patient less tachypneic. Patient has remained afebrile. PELVIC: Exam limited to th e pelvic exam. Lower abdomen with minimal tenderness to palpation. Sterile bimanual exam performed. The uterus is small and anteflexed. Mild tenderness to deep palpation of the fundus. Positive cer vical motion tenderness. Bladder is also tender to palpation. No adnexal masses noted. EXTREMITIES : Nontender. No edema. LAB WORK: Initial lab work in the emergency room revealed WBCs of 13,000. Lactate has normalized th roughout the hospital time. CT scan as noted above. ASSESSMENT: Pelvic pain, dysuria with signs of urinary tract infection and hydronephrosis on CAT sca n. Possible early pelvic inflammatory disease with no clear confirmatory signs. The patient does whittaker ve increased risk of pelvic inflammatory disease with an intrauterine device in place and a partner w ith outside partners. The patient understands she takes additional risk but does so for the benefit of her dysmenorrhea. Positive cervical motion tenderness and evidence of improvement on intravenous antibiotics. Currently, signs of a urinary tract infection also compounding the pelvic pain. 40 min utes spent [id number] with the patient with evaluation and examination. PLAN: I feel patient is on a good course of antibiotics with the ceftriaxone and doxycycline. BOOK SORTER w ill continue to follow the patient, and if the patient continues to have improvement, then would swit ch to just doxycycline for 14 days. If clinical worsening, then it might be prudent to remove IUD. /[id number]/MODL
[2018-08-26] MEDS: MULTIVITAMINS 1 EACH TAB PO SCH (09:03)
[2018-08-26] MEDS: FOLIC ACID 1 MG TAB PO SCH (09:03)
[2018-08-26] MEDS: DOXYCYCLINE INJ 100 MG in NS 250 ML IV SCH (09:04)
[2018-08-26] MEDS: ENOXAPARIN 40 MG/0.4 ML SYR SC SCH (09:04)
[2018-08-26] MEDS: FAMOTIDINE 20 MG TAB PO SCH ×2 (10:37→20:12)
--- NOTE | 2018-08-26 10:42 | HOSPPROG ---
Hospitalist Progress Note Assessment/Plan: 43 yo F w/ ETOH use disorder presents with pelvic pain, sepsis from suspected PID. Plan: Septic shock - (WBC, HR, RR, lactate 10 on admission, f/u lactate 1.3), 2/[address] findings and symptoms. Note +cervical motion tenderness per CORE FEEDER exam. No pressors. - Blood and urine cultures ngtd (Coag neg staph 1/4 bottles likely contaminant) - Continue IVF's - cont Ceftriaxone plus Doxy (will change latter to po) - urine GC / chlamydia pending - assistant infant teacher consult appreciated, recommends Doxy x14 days, removal of IUD if symptoms worsen Hypoglycemia - Blood glucose <20 on arrival at [facility]. No history of diabetes, a1c 4.3. Hypoglycemia likely due to alcohol and malnutrition. - Monitor BG q6h L hydronephrosis - Unclear etiology; it is possible she recently passed a stone or that this is related to possible PID noted above. - Monitor renal function ETOH use disorder in acute withdrawal - She drinks 12 shots of vodka a day, last drink 08/24. Doesn't plan to quit drinking, but requests we proceed with w/ d management rather than taking etoh here. - Cont CIWA protocol - Daily MVI, folate, thiamine Hyperkalemia - Likely volume depletion, resolved after IVF's Transaminitis - Suspect related to ETOH. - follow Diet - Clears, ADAT Code - Full Ppx - Lovenox Dispo - Cont inpt, transfer to med/surg Subjective: Pt feels better today. less pain. No fevers. Mild tremors. No N/ V. Taking po. Objective: Vital Signs Temp Pulse Resp BP Pulse Ox 36.7 C 78 14 99/69 L 98 08/26/18 04:00 08/26/18 08:56 08/26/18 08:56 08/26/18 08:56 08/26/18 04:00 Laboratory Results 08/26/18 04:00 08/26/18 04:00 08/25/18 08/26/18 08/27/18 05:59 05:59 05:59 Intake Total 2049 3564 Output Total 400 1060 Balance 1650 2504 - Physical Exam Constitutional: no apparent distress Eyes: PERRL Ears, Nose, Mouth, Throat: moist mucous membranes Cardiovascular: regular rate and rhythym Respiratory: no respiratory distress, clear to auscultation Gastrointestinal: normoactive bowel sounds, soft, non-tender abdomen Skin: warm Musculoskeletal: full muscle strength Neurologic: AAOx3 Psychiatric: interacting appropriately ICD10 Worksheet Patient Problems: Problems Problem Status Onset Alcohol withdrawal Acute Dehydration Acute Hyperkalemia Acute Hypoglycemia Acute SIRS (systemic inflammatory response syndrome) Acute
[2018-08-26] MEDS ORDERED: D5W NS 1,000 ML IV SCH (11:00)
[2018-08-26 11:50] LABS: GC AMPLIFICATION GENPROBE NEGATIVE (NEGATIVE)
--- NOTE | 2018-08-26 14:54 | ASMTCMCOM ---
CM Note CM Note Notes: Patient is not interested in sobriety. Likely patient will d/c independently when medically clear. CM available if d/c needs arise. Date Signed: 08/26/2018 02:54 PM Electronically Signed By:Chloe Mayorga LCSW
[2018-08-26] MEDS ORDERED: PROTOCOL POTASSIUM 1 DOSE MISC PRN (17:06)
[2018-08-26] MEDS ORDERED: PROTOCOL K PHOSPHATE 1 DOSE IV PRN (17:06)
[2018-08-26] MEDS ORDERED: PROTOCOL MAGNESIUM 1 DOSE IV PRN (17:06)
[2018-08-26] MEDS: DOXYCYCLINE HYCLATE 100 MG CAP/TAB PO SCH (20:12)
[2018-08-27] MEDS: LORazepam 2 MG/ML INJ IVP PRN (03:13)
--- NOTE | 2018-08-27 06:09 | GCON ---
[f rep st] CONSULTATION PULMONARY CRITICAL CARE CONSULTATION DATE OF CONSULTATION: 08/26/2018 REASON FOR CONSULTATION: Sepsis, alcohol withdrawal. HISTORY: The patient is a 43-year-old who has a history of alcohol abuse. She presented [place] [facility] [place] with abdominal pain, nausea and vomiting. GI problems have been present for over a week and she was eating very little. She was, however, continuing to drink vodka martinis daily. On presentation, she complained of fever, chills, and lower abdominal pain. She was tachycardic without hypotension. Lactate was significantly elevated at approximately 10. She was found to be hypoglycemic, as well as hypomagnesemia. She was, thus, transferred to [facility] for admission with sepsis. CT scan of the abdomen demonstrated some mild changes, possibly consistent with PID. In addition, there was mild to moderate hydronephrosis on the left, without evidence of a stone. She also had a hiatal hernia. Blood alcohol on admission was 56. The patient was admitted from the emergency department to the intensive care unit with sepsis. Volume resuscitation was initiated. She did not require pressor therapy. She was started on antibiotics for possible PID, possible urinary tract infection. She has been on ceftriaxone and was subsequently started on doxycycline. She is on the CIWA protocol and has been receiving Ativan. She does have a history of alcohol withdrawal in the past, but has not been hospitalized for this. She does have a history gastroesophageal reflux. PAST MEDICAL HISTORY: As noted above. DRUG ALLERGIES: Allergic to bee venom and valacyclovir. SOCIAL HISTORY: Drinks 5-6 shots or possibly more of vodka per day. She is . She has 2 children, one who lives with her 2 days per week. 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 She smokes a couple cigarettes per day. FAMILY HISTORY: Noncontributory. PHYSICAL EXAMINATION: GENERAL: Reveals a woman who appears tired, somewhat ill. VITAL SIGNS: Blood pressure is approximately 110/70, heart rate 90 with sinus rhythm on the monitor. On room air, saturations are 94%. She is afebrile. Respiratory rate is 18. HEENT: Unremarkable for lymphadenopathy or thyromegaly. There is no jugular venous distention. Pupils are equal. Mucous membranes are somewhat dry. CHEST: Clear bilaterally. There are no abnormal sounds. HEART: Regular in rate and rhythm. There is a soft systolic murmur. No gallops. ABDOMEN: Soft and nontender. Organomegaly cannot be appreciated. EXTREMITIES: Without edema, cords, or tenderness. NEUROLOGIC: Nonfocal. She is oriented and appropriately responsive. She is not confused. DATABASE: CT scan of the abdomen is as noted above. Chest x-ray on admission was normal. White blood cell count 7500, hematocrit 33, platelets 145,000. MCV is elevated at 110. Blood lactate last p.m. was down to normal at 1.3. Chemistries today show a sodium of 136, potassium 4.1, CO2 of 22, BUN 12, and creatinine of 0.6. Glucose is approximately 100. Calcium is 7.5, phosphorus 1.4, and magnesium 1.9. Urinalysis showed 3-5 white blood cells, urine bacteria was present along with hyaline casts. Leukocyte esterase was negative. BAL on admission was 56. Chlamydia/Neisseria RNA are negative. ASSESSMENT: 1. Sepsis, resolving. Probably secondary to pelvic inflammatory disease. A urinary tract infection is also possible. Blood cultures are negative. The coag-negative staph in 1 blood culture was likely a contaminant. Urine culture remains pending, but is no growth so far. MEASURING MACHINE TENDER consult is appreciated. The patient does have an intrauterine device. This is being left in place. 2. Alcohol withdrawal. The patient does have a significant history of chronic alcohol abuse. She is on the CIWA protocol and is receiving as-needed Ativan. Thiamine has been given. She does have a persistent tremor. 3. Nausea and vomiting. Probably secondary to alcoholic gastritis? She does have a history of reflux and a hiatal hernia. Anti-reflux therapy does need to be continued. Nausea and vomiting do appear to be resolving. She is able to take p.o. food and fluids at this point. Oral intake appears to be increasing. 4. Metabolic hypomagnesemia. Electrolyte replacement protocols are ordered. Electrolytes are being followed. 5. Anemia. Hematocrit is 33. She likely has chronic anemia secondary to alcoholism, possibly gastritis. She may have folate and B12 deficiency. Levels will be checked. 6. Elevated liver function studies. Mild, probably secondary to alcohol. 7. Hypoglycemia. Multifactorial, secondary to probable malnutrition, liver disease, sepsis. Given glucose, on a drip. Improved. PLAN AND RECOMMENDATIONS: The patient will be kept in the intensive care unit. Intravenous fluids will be continued. CIWA protocol will be maintained. The patient states she is trying to cut down on alcohol, but has no intention of quitting at this point. It may not be unreasonable to provide her with a small amount of vodka, but at the same time, keep her on the CIWA protocol. I will leave this up to hospitalist medicine. Folate and B12 will be checked. Antibiotics will be continued. Further plans and recommendations will be made based on her progress over the next 12 to 24 hours. /[id number]/MODL MTDD
--- NOTE | 2018-08-27 07:15 | SOAPPROG ---
SOAP Progress Note Assessment/Plan: Assessment: 43 yo HD#3 admitted with EtOH withdrawal, sepsis secondary to presumed PID. Managed by Hospitalist group. Clinically is improving, low abd pain much improved. Plan: Continue with Doxycycline - would do a full 14 d course of po to complete treatment for PID. Bhakti Mooney MD, FACOG [facility] 08/27/18 07:29 Subjective: Pt resting comfortably. Says pelvic pain has improved. Is asking when she can go home. No vaginal bleeding. No vaginal dc or itching. Objective: Vital Signs Temp Pulse Resp BP Pulse Ox 36.6 C 94 13 120/78 97 08/26/18 23:59 08/27/18 04:00 08/26/18 23:59 08/27/18 04:00 08/26/18 23:59 Laboratory Results 08/27/18 05:00 08/27/18 05:00 08/26/18 08/27/18 08/28/18 05:59 05:59 05:59 Intake Total 3564 2517 Output Total 1060 600 Balance 2504 1917 gen - resting comfortably in bed, interacts minimally but is cooperative abd - soft, mild diffuse tenderness in low abdomen, no rebound no guarding, + BS - Time Spent With Patient Time Spent With Patient: 5 min ICD10 Worksheet Patient Problems: Problems Problem Status Onset Alcohol withdrawal Acute Dehydration Acute Hyperkalemia Acute Hypoglycemia Acute SIRS (systemic inflammatory response syndrome) Acute
[2018-08-27] MEDS ORDERED: POTASSIUM CL 10 MEQ TAB PO ONE (07:46)
[2018-08-27] MEDS: DOXYCYCLINE HYCLATE 100 MG CAP/TAB PO SCH (08:49)
[2018-08-27] MEDS: FAMOTIDINE 20 MG TAB PO SCH (08:50)
[2018-08-27] MEDS: FOLIC ACID 1 MG TAB PO SCH (08:50)
[2018-08-27] MEDS: MULTIVITAMINS 1 EACH TAB PO SCH (08:50)
[2018-08-27] MEDS: ENOXAPARIN 40 MG/0.4 ML SYR SC SCH (08:50)
[2018-08-27 08:57] VITALS: BP 121/82
--- NOTE | 2018-08-27 15:25 | ASMTLACE ---
YULIAE Length of stay for Answers: 2 days current admission Acuity / Level of Answers: Yes Care: Did the patient have an inpatient admission? # of Emergency department Answers: 1-2 visits in the last 6 months Social determinants Answers: History of substance abuse (ETOH, street drugs, prescription drugs, etc.) Score: 9 Date Signed: 08/27/2018 03:24 PM Electronically Signed By:Carolee Herring RN
--- NOTE | 2018-08-27 15:29 | ASDISCHSUM ---
Discharge Information Plan Status:Home with No Needs Medically Cleared to Leave: Discharge Date:08/27/2018 11:05 AM CM D/C Disposition:Home, Routine, Self-Care ADT D/C Disposition:Home, Routine, Self-Care Projected Discharge Date:08/27/2018 11:05 AM Transportation at D/C:Friend Discharge Delay Reason: Follow-Up Date:08/27/2018 11:05 AM Discharge Slot:1 - 8:01 am - 12:00 noon Final Diagnosis:Septic shock likely secondary to PID, hyperkalemia, hypoglycemia, ETOH abuse Placement Information Patient Contact Information Contact Name:FRANCISCO Relationship:Daughter Address:[address] [employer] Work Phone: City:[facility] Phone: State/Zip Code:[place] [address] Email: Financial Information Financial Class:Medicaid Primary Plan Desc:MEDICAID [facility] [place] Primary Plan Number:[id number] Secondary Plan Desc: Secondary Plan Number: Assessment Information LACE LACE Length of stay for Answers: 2 days current admission Acuity / Level of Answers: Yes Care: Did the patient have an inpatient admission? # of Emergency department Answers: 1-2 visits in the last 6 months Social determinants Answers: History of substance abuse (ETOH, street drugs, prescription drugs, etc.) Score: 9 Date Signed: 08/27/2018 03:24 PM Electronically Signed By:Carolee Herring RN [facility] Initial CM Assessment Living Arrangements What is your living Answers: With Child(parker) arrangement? Who do you live with? Type Of Residence What kind of residence do Answers: House you live in? Discharge Plan Comments Coordination Status Comments Notes: Patient is a 43yo single female with ETOH use disorder presenting with sepsis from suspected PID. Patient is being admitted for sepsis, lactic acidosis, hypoglycemia, L hydronephrosis, ETOH use disorder, hyperkalemia, and transaminitis. Patient has a daughter who lives with her. No therapies ordered at this time. CM to check with patient regarding social support. Cage and ETOH resources as soon as the patient is more able to participate. CM will follow. Date Signed: 08/25/2018 03:36 PM Electronically Signed By:Chloe Mayorga LCSW [facility] CM Progress Note CM Note CM Note Notes: Patient is not interested in sobriety. Likely patient will d/c independently when medically clear. CM available if d/c needs arise. Date Signed: 08/26/2018 02:54 PM Electronically Signed By:Chloe Mayorga LCSW Case Management Discharge Plan Note Case Management Discharge Discharge Order Complete? Answers: Yes Patient to Obtain Answers: Independently Medications Transportation Arranged Answers: Family/Friends Transport will Pick (Date 08/27/2018 12:00 AM & Time) EMTALA Complete Answers: No Notes: N/A Case Management Transport Answers: No Notes: N/A Form Complete Faxed Final Orders Answers: No Notes: N/A Agency/Facility Transfer Answers: No Notes: N/A Report Printed & Faxed to Receiving Agency Family Notified Answers: No Notes: Pt to notify. Discharge Comments Notes: Reviewed chart regarding discharge plan of care, pt's progress. Per MD notes, pt to discharge home independently with no identified needs. CM previously attempted to provide ETOH resources, pt declined. Spoke with [facility]. Per Bee, no CM needs. No IM/DELVALLE forms signed, not applicable. Pt to follow up as directed. CM available for any further issues or concerns. Discharge Plan: Home independently Date Signed: 08/27/2018 03:28 PM Electronically Signed By:Carolee Herring RN Intervention Information
--- NOTE | 2018-08-27 18:51 | GDS ---
[f rep st] DISCHARGE SUMMARY DISCHARGE DIAGNOSES: 1. Septic shock, presumed secondary to pelvic inflammatory disease. 2. Pelvic inflammatory disease. 3. Hypoglycemia, resolved. 4. Left-sided hydronephrosis of unclear etiology, possibly related to pelvic inflammatory disease or the recent passage of stone. This should be followed up with repeat ultrasound in outpatient [facility]. 5. Alcohol abuse. 6. Acute alcohol withdrawal. 7. Hyperkalemia, resolved. 8. Transaminitis, likely secondary to alcohol, improved. CONSULTANTS: 1. Dr. Dheeraj Dinero, Pulmonology. 2. Dr. Naya Pink, of Gynecology. HISTORY OF DETAILS: Please see History and Physical dated August 25, 2018. In brief, the patient i s a 43-year-old female with history of alcohol abuse, who presented to the emergency department with abdominal pain. Her workup revealed criteria for sepsis with elevated white blood cell count, tachyc ardia, tachypnea, and lactate greater than 10, which is technically consistent with septic shock; how ever, her lactic acidosis may have been related to profound dehydration and malnourishment in the set ting of liver dysfunction. She underwent CT abdomen which showed some stranding, possibly consistent with PID. In addition, there was some left-sided hydronephrosis. She was started on ceftriaxone an d doxycycline for presumed infection for PID. Noted, she does have an IUD in place. Gynecology cons ult was obtained. It was recommended this not be removed as her condition did improve, and she did n ot have vaginal discharge. She did develop some mild alcohol withdrawal which was managed with benzo diazepines; however, she is very clear that she had no plans to quit drinking, and once her medical s tatus stabilized, she wished to discharge home and did not want to complete a detox course. However, she did note that she did not plan to drink on the day of discharge. I therefore discharged her wit h a few tablets of Librium to prevent worsening withdrawal or seizures. She is advised she should no t take this in combination with alcohol and she agrees. On the day of discharge, she is afebrile. Blood pressure 121/82, heart rate 88, respiratory rate 14. She is 98% on room air. Note her blood cultures were positive for coag-negative staph, which was thought to be a contaminant in 1 of 4 bottles. Her blood cultures and urine culture were otherwise negative. Urine testing for gonorrhea and chlamydia were negative. DISPOSITION: Patient is discharged home in stable condition. FOLLOWUP: Dr. Naya Pink, Gynecology. DISCHARGE MEDICATIONS: 1. Please see [facility] completed-medication list. New medications on discharge include doxycycline 100 mg p.o. twice daily #24 no refills to complete a 2 week treatment course for presumed PID. 2. Librium 25 mg p.o. twice daily p.r.n. No refills. Patient is advised to take this if she opts to drink alcohol. 3. Pepcid 20 mg p.o. twice daily, folic acid 1 mg p.o. daily, multivitamin 1 p.o. daily and thiamine 100 mg p.o. daily. She will continue all other outpatient medications as previously prescribed. /[id number]/MODL
[2018-08-28] MEDS ORDERED: THIAMINE HCL 100 MG TAB PO SCH (06:48)
== END 2018-08-27 11:05 | disposition home or self-care (01) | DRG 720 ==
LOC: CED 01:37 → CEDHOLD 04:50 → F2N 06:17
PROVIDERS: ADMIT Student in an Organized Health Care Education/Training Program; ATTEND Hospitalist
PROC: 02HV33Z Insertion of Infusion Device into Superior Vena Cava, Percutaneous Approach (ICD-10-PCS; principal; 2018-08-25)
DX: A41.9 Sepsis, unspecified organism (principal); R65.21 Severe sepsis with septic shock; N73.9 Female pelvic inflammatory disease, unspecified; N13.30 Unspecified hydronephrosis; E87.5 Hyperkalemia; E16.2 Hypoglycemia, unspecified; F10.239 Alcohol dependence with withdrawal, unspecified; R74.0 Nonspecific elevation of levels of transaminase and lactic acid dehydrogenase [LDH]; Z72.0 Tobacco use
CPT/HCPCS: 71046-PO; 74177-PO; 80053-ER; 82607-90; 82947-QW; 83605-ER; 96361-ER; 96365; 96366-ER; 96375-ER; 96376-ER; 99291-ER; 99292-ER; C1751; G0480; J0696; J1170; J1650; J1956; J2060; J2405; J2550; J3010; J3360; J7613; Q9967